=== PATIENT | female | born 1990 | race Caucasian/White ===

== ENCOUNTER 2016-08-08 17:26 | Emergency (ER) | payer OTHER ==
[~2016-08-08] VITALS: Ht 165.1 cm; Wt 68.0 kg
[~2016-08-08 17:26] MED LIST: ALDACTONE50 MG PO; BENLYSTA120 MG IV; IMURAN50 MG PO; LEVAQUIN500 MG PO; MOTRIN PO; PLAQUENIL200 M1 PO; PREDNISONE10 MG PO; SLOW FE PO; ZOFRAN4 MG PO
--- NOTE | 2016-08-08 17:39 | NUR ---
Patient ambulated to bed 02.
--- NOTE | 2016-08-08 17:39 | NUR ---
PATIENT PRESENTS TO ED WITH left sided neck pain radiating up to forehead with n/v--x3 days is being followed by artillery meteorological man and athletic scout for lupus . PT STATES . c/o n/v; SKIN IS PINK/WARM/DRY; AAOX4 WITH EVEN AND STEADY GAIT; LUNGS CLEAR BL; HR EVEN AND REGULAR; PT DENIES ANY FEVER, CP, SOB, OR COUGH AT THIS TIME; PATIENT STATES PAIN OF 8/10 AT THIS TIME; VSS; PATIENT POSITIONED FOR COMFORT; HOB ELEVATED; BEDRAILS UP X2; BED DOWN. ER MD MADE AWARE OF PT STATUS.
--- NOTE | 2016-08-08 17:39 | NUR ---
Dr. Hawthorne evaluating patient at bedside.
[2016-08-08 17:44] VITALS: BP 149/83
[2016-08-08] MEDS ORDERED: ONDANSETRON 4 MG/2 ML VIAL IVP ONE (17:45)
[2016-08-08] MEDS ORDERED: KETOROLAC 30 MG/ML VIAL IVP ONE (17:50)
--- NOTE | 2016-08-08 18:00 | NUR ---
Note undone in EDM - 08/08/16 at 1830 by RENEE PATIENT PRESENTS TO ED WITH sob and chest pain with persistant coughing . PT STATES . DENIES N/V/D; SKIN IS PINK/WARM/DRY; AAOX4 WITH EVEN AND STEADY GAIT; LUNGS wheezing rales; HR tachy; TIME; PATIENT STATES PAIN OF 7/10 AT THIS TIME; VSS; PATIENT POSITIONED FOR COMFORT; HOB ELEVATED; BEDRAILS UP X2; BED DOWN. ER MD MADE AWARE OF PT STATUS. placed on 3L 02 NC-[facility]--placed on monitor--x-ray/ RT called to bedside. lab with me collecting blood. pt reports having a stent in place and hypertension also pre diabetes
[2016-08-08] MEDS ORDERED: HYDROmorphone 1 MG/ML AMP IVP ONE (18:45)
--- NOTE | 2016-08-08 19:04 | NUR ---
medicated for left sided neck pain---a/o x4 full clear speech---pt admits feels light headed after dialudid---instructed not to get out of [facility] without notifing nursing staff--x2 sr up [facility] low and locked. placed on monitor
--- NOTE | 2016-08-08 19:19 | NUR ---
report received from [facility]
--- NOTE | 2016-08-08 19:56 | NUR ---
Patient discharged with v/s stable. Written and verbal after care instructions given and explained. Patient alert, oriented and verbalized understanding of instructions. Ambulatory with steady gait. All questions addressed prior to discharge. ID band removed. Patient advised to follow up with PMD. Rx of norco, zofran and benadryl given. Patient educated on indication of medication including possible reaction and side effects. Opportunity to ask questions provided and answered.
[2016-08-08 19:57] VITALS: BP 106/65
== END 2016-08-08 19:58 | disposition home or self-care (01) ==
LOC: MED 17:26
DX: M54.2 Cervicalgia (principal); M32.9 Systemic lupus erythematosus, unspecified; K75.4 Autoimmune hepatitis
CPT/HCPCS: 36415; 80053; 81001; 81025; 82150; 83690; 85025; 85651; 96374; 96375; 99284; J1170; J1885; J2405

== ENCOUNTER 2017-03-15 16:44 | Emergency (ER) | payer OTHER ==
[~2017-03-15] VITALS: Ht 165.1 cm; Wt 65.8 kg
[~2017-03-15 16:44] MED LIST changes: -ALDACTONE50 MG PO; -BENLYSTA120 MG IV; -IMURAN50 MG PO; -LEVAQUIN500 MG PO; -MOTRIN PO; -PLAQUENIL200 M1 PO; +PRED10TA5 PO; -PREDNISONE10 MG PO; -SLOW FE PO; +SPIR50TA PO; -ZOFRAN4 MG PO
--- NOTE | 2017-03-15 17:18 | NUR ---
Patient taken to XRAY from lobby via wheelchair per tech.
--- NOTE | 2017-03-15 17:27 | NUR ---
Patient back from XRAY to lobby via wheelchair per tech.
[2017-03-15 17:33] VITALS: BP 124/75
[2017-03-15] MEDS ORDERED: HYDR200T5 PO (17:38)
--- NOTE | 2017-03-15 17:39 | NUR ---
Patient ambulated to bed 08.
--- NOTE | 2017-03-15 17:40 | NUR ---
27/F BIB FAMILY C/O LOWER ABDOMINAL PAIN & ANAL PAIN X TODAY. PATIENT STATED SHE HAS HEMORRHOIDS.BLOODY STOOLS FROM HEMORRHOIDS. HX: LUPUS,AUTOIMMUNE LIVER CIRRHOSIS,HEMORRHOIDS. MEDS: PREDNISONE,PLAQUANIL.DENIES N/V/D; SKIN IS PINK/WARM/DRY; AAOX4 WITH EVEN AND STEADY GAIT; LUNGS CLEAR BL;PATIENT STATES PAIN OF 9/10 AT THIS TIME; PATIENT POSITIONED FOR COMFORT; HOB ELEVATED; BEDRAILS UP X2; BED DOWN. ER MD MADE AWARE OF PT STATUS.
--- NOTE | 2017-03-15 18:23 | NUR ---
STOOD IN FEMALE ACTIVITIES LEADER FOR DR. WONG DURING PATIENT EXAM
[2017-03-15 18:33] VITALS: BP 101/51
--- NOTE | 2017-03-15 18:33 | NUR ---
Patient discharged with v/s stable. Written and verbal after care instructions given and explained. Patient alert, oriented and verbalized understanding of instructions. Ambulatory with steady gait. All questions addressed prior to discharge. ID band removed. Patient advised to follow up with PMD. Rx of ANUSOL, MOTRIN & LACTOSE given. Patient educated on indication of medication including possible reaction and side effects. Opportunity to ask questions provided and answered.
== END 2017-03-15 18:33 | disposition home or self-care (01) ==
LOC: MED 16:44
DX: K64.4 Residual hemorrhoidal skin tags (principal); R03.0 Elevated blood-pressure reading, without diagnosis of hypertension; Z79.899 Other long term (current) drug therapy
CPT/HCPCS: 74000; 81002; 81025; 99283

== ENCOUNTER 2020-06-09 13:21 | Emergency (ER) | payer OTHER ==
[~2020-06-09] VITALS: Ht 165.1 cm; Wt 68.0 kg
[~2020-06-09 13:21] MED LIST changes: +HYDR200T5 PO
[2020-06-09 13:32] VITALS: BP 152/90
[2020-06-09] MEDS ORDERED: ONDANSETRON 4 MG ODT PO ONE ×2 (13:55→15:55)
[2020-06-09] MEDS ORDERED: KETOROLAC 30 MG/ML VIAL IM ONE (13:55)
[2020-06-09] MEDS ORDERED: KETOROLAC 60 MG/2 ML VIAL IM ONE (15:55)
[2020-06-09 17:21] VITALS: BP 152/90
--- NOTE | 2020-06-09 17:21 | NUR ---
Patient discharged to home, left without paperwork. VSS prior to leaving ED
== END 2020-06-09 17:21 | disposition home or self-care (01) ==
LOC: MED 13:21
DX: M32.9 Systemic lupus erythematosus, unspecified (principal); Z79.899 Other long term (current) drug therapy
CPT/HCPCS: 96372; 99283; J1885; Q0162

== ENCOUNTER 2020-06-25 15:21 | Emergency (ER) | payer OTHER ==
[~2020-06-25] VITALS: Ht 165.1 cm; Wt 73.9 kg
--- NOTE | 2020-06-25 15:28 | NUR ---
Dr. Brown is evaluating the patient in the ED lobby.
[2020-06-25 15:29] VITALS: BP 130/81
--- NOTE | 2020-06-25 15:30 | NUR ---
Code brain called.
--- NOTE | 2020-06-25 15:32 | NUR ---
Patient transferred to bed 2. RN evaluating patient at bedside.
--- NOTE | 2020-06-25 16:33 | NUR ---
EKG PERFORMED AT BEDSIDE. EKG READS SINUS RHYTHM @ 75
[2020-06-25 16:35] LABS: BASOPHILS % (AUTO) 0.6 % (0.0-2.0); EOSINOPHILS # (AUTO) 0.2 K/uL (0-0.4); EOSINOPHILS % (AUTO) 6.9 % (0.0-4.0); HEMATOCRIT 39.6 % (36-48); HEMOGLOBIN 13.6 g/dL (12.0-16.0); LYMPHOCYTES # (AUTO) 0.3 K/uL (2.5-16.5); LYMPHOCYTES % (AUTO) 9.8 % (20.5-51.1); MEAN CORPUSCULAR HEMOGLOBIN 31 pg (27-31); MEAN CORPUSCULAR HGB CONC 34 g/dL (33-37); MEAN CORPUSCULAR VOLUME 90.5 fL (80-94); MONOCYTES # (AUTO) 0.2 K/uL (0.8-1.0); MONOCYTES % (AUTO) 4.8 % (1.7-9.3); NEUTROPHILS # (AUTO) 2.7 K/uL (1.8-7.7); NEUTROPHILS % (AUTO) 77.9 % (42.2-75.2); PLATELET COUNT (AUTO) 138 K/uL (140-450); RED BLOOD CELL COUNT(AUTO) 4.37 MIL/uL (4.20-5.40); RED CELL DISTRIBUTION WIDTH 12.8 % (11.6-13.7); WHITE BLOOD COUNT (AUTO) 3.5 K/uL (4.8-10.8)
[2020-06-25 17:10] LABS: PROTHROMBIN TIME 9.4 secs (10.8-13.4)
[2020-06-25 17:24] LABS: ALBUMIN 3.4 g/dL (3.4-5.0); ANION GAP 11.2 (8-16); CARBON DIOXIDE 27.2 mmol/L (21-32); CREATININE 0.7 mg/dL (0.6-1.3); POTASSIUM 3.4 mmol/L (3.5-5.1); TOTAL BILIRUBIN 0.3 mg/dL (0.0-1.0)
[2020-06-25] MEDS ORDERED: ASPIRIN 81 MG TAB.CHEW PO ONE (18:05)
--- NOTE | 2020-06-25 19:12 | NUR ---
Hand-off report ross to Gena MARCELINO for continuation of nursing care
--- NOTE | 2020-06-25 19:22 | NUR ---
CALL TO [facility] TO GIVE REPORT. PLACED ON HOLD.
--- NOTE | 2020-06-25 19:25 | NUR ---
[facility] HERE FOR TRANSPORT
--- NOTE | 2020-06-25 19:36 | NUR ---
REPORT TO RYLAND JORGE MICN AT [facility].
[2020-06-25 19:44] VITALS: BP 130/81
--- NOTE | 2020-06-25 19:44 | NUR ---
TRANSFERED VIA [facility]. CHART COPIED AND SENT.
== END 2020-06-25 19:44 | disposition designated cancer center or children's hospital (05) ==
LOC: MED 15:21
DX: M32.9 Systemic lupus erythematosus, unspecified (principal); D72.819 Decreased white blood cell count, unspecified; D69.6 Thrombocytopenia, unspecified; Z79.899 Other long term (current) drug therapy
CPT/HCPCS: 36415; 70450; 71045; 80053; 84484; 85025; 85610; 85730; 99291